=== PATIENT | female | born 1955 | race Caucasian/White ===

== ENCOUNTER 2017-08-29 07:39 | Day surgery (SDC) | payer MEDICARE, BC ==
[~2017-08-29 07:39] MED LIST: ACETAMINOPHEN WITH CODEINE 1 EACH TABLET PO PRN; ONDANSETRON HCL/PF 2 MG/ML VIAL IV PRN; RINGER'S SOLUTION,LACTATED 1,000 ML IV PRN; ceFAZolin SODIUM 1 GM VIAL IV PRN; oxyCODONE HCL/ACETAMINOPHEN 1 TAB TABLET PO PRN
[2017-08-29] MEDS ORDERED: RINGER'S SOLUTION,LACTATED 1,000 ML IV ONE (08:00)
[2017-08-29] MEDS ORDERED: LIDOCAINE HCL 10 APPL CARTRIDGE TP ONE (09:10)
[2017-08-29] MEDS ORDERED: OPIUM/BELLADONNA ALKALOIDS 1 SUPP SUPP RC ONE (09:34)
[2017-08-29 11:26] VITALS: BP 158/90
== END 2017-08-29 07:40 | disposition home or self-care (01) ==
LOC: AMB 07:39
PROVIDERS: ATTEND Urology
PROC: 0TBB8ZX Excision of Bladder, Via Natural or Artificial Opening Endoscopic, Diagnostic (ICD-10-PCS; principal; 2017-08-29)
PROC: 0T7B8ZZ Dilation of Bladder, Via Natural or Artificial Opening Endoscopic (ICD-10-PCS; 2017-08-29)
DX: N32.89 Other specified disorders of bladder; J45.909 Unspecified asthma, uncomplicated; N30.11 Interstitial cystitis (chronic) with hematuria; I10 Essential (primary) hypertension; Z68.35 Body mass index [BMI] 35.0-35.9, adult